=== PATIENT | male | born 1990 | race Caucasian/White ===

== ENCOUNTER 2023-08-04 12:49 | Emergency (ER) | payer BC, SELFPAY ==
[2023-08-04 13:07] VITALS: BP 142/115
[2023-08-04 13:25] LABS: % Basophils 0.7 % (0-2); % Eosinophils 3.7 % (0-6); % Immature Granulocytes 0.2 % (0-0.5); % Lymphocytes 37.4 % (20.5-51.1); Absolute Eosinophils 0.2 10^3/uL (0-0.7); Absolute Lymphocytes 2.1 10^3/uL (1.2-3.4); Absolute Monocytes 0.5 10^3/uL (0.1-0.6); Absolute Neutrophils 2.8 10^3/uL (1.4-6.5); Hematocrit 43.7 % (39.0-52.0); Hemoglobin 15.8 g/dL (13.0-18.0); Mean Corp Hgb Conc. 36.2 g/dL (33.0-37.0); Mean Corpuscular Hgb 30.7 pg (27.0-31.0); Mean Corpuscular Volume 84.9 fL (80.0-94.0); Mean Platelet Volume 9.7 fL (7.4-10.4); Nucleated Red Blood Cells % 0 % (-); Platelet Count 234 10^3/uL (130-400); Red Blood Cell Count 5.15 10^6/uL (4.70-6.10); Red Cell Dist. Width 12.1 % (11.5-14.5); White Blood Cell Count 5.6 10^3/uL (4.8-10.8)
[2023-08-04 13:41] LABS: ALT (SGPT) 21 U/L (0-50); AST (SGOT) 30 U/L (17-59); Albumin 4.9 g/dl (3.5-5.0); Alkaline Phosphatase 52 U/L (38-126); Blood Urea Nitrogen 12 mg/dl (9-20); COVID-19 Antigen Negative (Negative); Calcium 9.5 mg/dl (8.4-10.2); Carbon Dioxide 29 mmol/L (22-30); Chloride 101 mmol/L (98-107); Glucose 95 mg/dl (70-99); Lipase 104 U/L (23-300); Potassium 4.7 mmol/L (3.5-5.1); Sodium 135 mmol/L (135-145); Total Protein 7.5 g/dl (6.3-8.2); eGFR > 60.00
--- NOTE | 2023-08-04 15:15 | ED.GENMED ---
History of Present Illness
General
Chief Complaint: Headache
Time Seen by Provider: 08/04/23 15:14
Travel History
Have you had any contact with someone who has COVID-19?: No
Do you have any symptoms of coronavirus? Fever > 100 degrees, chills, cough, shortness of breath, sore throat, loss of taste or smell, muscle aches, or headache?: No
History of Present Illness
History of Present Illness:
HPI: Patient presents with headache. This is associated with photophobia and nausea. He has had symptoms ongoing for the last several days. He has had some milder headaches in the past but is never had any diagnosis such as migraine type of
headache. He has never had any neuroimaging.
EXAM:
GENERAL: Well appearing in no distress
HEENT: Moist oral mucosa
CARDIOVASCULAR: No murmurs, normal heart rate and rhythm, No chest wall tenderness
PULMONARY: No respiratory distress, breath sounds are clear and equal
ABDOMEN: Soft with no peritoneal signs, no tenderness
NEUROLOGIC: Excellent strength all extremities, no coordination deficits, normal finger-nose testing
PSYCHIATRIC: Appropriate mental status, normal insight and judgement
EXTREMITIES: Nontender, no edema, moves all extremities equally
SKIN: No rash, no lesions
ED COURSE:
3:35 PM: I initially evaluated patient
NUMBER AND COMPLEXITY OF PROBLEMS ADDRESSED AT THE ENCOUNTER
� Chronic conditions affecting care: Frequent headaches
� Acute Exacerbation and/or Progression of Chronic Illness: This is an acute/worsening problem
� Differential Diagnosis includes: Migraine type headache, tension headache, nonspecific headache, intracranial mass/bleeding unlikely
AMOUNT AND/OR COMPLEXITY OF DATA TO BE REVIEWED AND ANALYZED
� I performed an independent evaluation of and my interpretation is:
EKG:
CT: CT brain unremarkable
X-rays:
Laboratory Studies: CBC normal, chemistries including LFTs and lipase are normal, COVID and flu are negative
Other:
� Review of other/old records: I reviewed records�the patient had surgical removal of pilonidal cyst in 2022
� Clinical information was obtained by an independent historian: I spoke to the girlfriend at bedside
� Prescriptions/Medications Considered but not given:
� Further testing considered but not performed:
RISK OF COMPLICATIONS AND/OR MORBIDITY OR MORTALITY OF PATIENT MANAGEMENT
� Social determinants of health affecting care: Lives at home
� Discussion with other providers:
� Escalation of care including admission/observation vs risk of discharge considered: Given the associated photophobia and nausea, will try Reglan with Benadryl along with Toradol. He has a nonfocal neurologic examination
however has never had any headaches therefore CT imaging obtained which was unremarkable. On reassessment at 5 PM, the patient appears and feels somewhat improved after Reglan and Toradol were given. He is to follow-up with neurology as an
outpatient.
Phy Exam
Physical Exam
Physical Exam:
See HPI
Course
Orders/Labs/Results
Orders:
Orders
08/04/23 13:15
COVID-19 Antigen Urgent
Source: Nasal Swab
Complete Blood Count/With Diff Urgent
Comprehensive Metabolic Panel Urgent
Lipase Urgent
Influenza A+B Rapid Molecular Urgent
[facility] Source: Nasal Swab
Specimen Description:
08/04/23 15:41
CT Head W/o Iv Contrast Urgent
Comment:
Reason For Exam: new severe LUNDBERG
0.9% Sodium Chloride 1000 ml [Nss] 1,000 ml IV BOLUS
Diphenhydramine [Benadryl] 25 mg IV NOW STA
Ketorolac [Toradol] 15 mg IV NOW STA
Metoclopramide [Reglan] 10 mg IV NOW STA
08/04/23 13:15
08/04/23 13:15
Vital Signs
Initial and Last Documented VS:
Initial Vital Signs
Temp Pulse Resp BP Pulse Ox
98.1 F 70 18 142/115 100
08/04/23 13:07 08/04/23 13:07 08/04/23 13:07 08/04/23 13:07 08/04/23 13:07
Last Documented Vital Signs
Temp Pulse Resp BP Pulse Ox
98.1 F 64 18 129/77 100
08/04/23 13:07 08/04/23 15:51 08/04/23 15:51 08/04/23 15:51 08/04/23 15:51
*Critical Care Note
Total Time (30-74mins, 75-104mins- exclusive of procedures): Not Applicable
ED Attending Note
-
Portions of this chart may have been created with voice recognition software.� Occasional wrong word or��sound alike� substitutions may have occurred due to the inherent limitations of voice recognition software.
Discharge Plan
Departure
Patient Disposition: Home (Routine Discharge)
Date of Disposition: 08/04/23
Time of Disposition: 17:04
Patient with high blood pressure during this ER visit?: Yes
Discharge Problem:
Headache, Migraine
Prescriptions:
No Action
acetaminophen [acetaminophen] 325 mg tablet
650 mg PO Q4HPRN PRN (Reason: mild pain) Qty: 1 0RF
ibuprofen 200 mg tablet
400 - 600 mg PO Q6HPRN PRN (Reason: moderate pain) Qty: 1 0RF
oxycodone 5 mg tablet
5 mg PO Q4HPRN PRN (Reason: breakthrough/severe pain) Qty: 10 0RF
Referrals:
Jin Noble MD [Active] - Follow up in 2-3 days
UNKNOWN - PT DOES,NOT KNOW [Family Provider] -
Activity Restrictions/Additional Instructions:
CAT scan of the brain showed no acute abnormality, blood work was normal, COVID and flu test were negative. I have given you the contact information for a local neurologist to follow-up with.
Interventions
Interventions:
*Risk Screen - Suicide Last Done: 08/04/23 13:07
*General Assessment Last Done: 08/04/23 13:07
*Neglect/Abuse Screening Last Done: 08/04/23 13:07
ED- Fall Risk Assessment Last Done: 08/04/23 15:55
*ED COVID-19 Vaccine History Last Done: 08/04/23 13:07
ED- Neurological Assessment Last Done: 08/04/23 15:55
[2023-08-04 15:51] VITALS: BP 129/77
[2023-08-04] MEDS: TORADOL 15 MG IV (15:55)
[2023-08-04] MEDS: REGLAN 10 MG IV (15:55)
[2023-08-04] MEDS: NSS 1000 IV (15:55)
[2023-08-04] MEDS: BENADRYL 25 MG IV (15:56)
[2023-08-04 17:09] VITALS: BP 135/83
== END 2023-08-04 17:13 | disposition home or self-care (01) ==
LOC: EMR 12:49
PROVIDERS: Emergency Medicine; EMERGENCY PHYSICIAN Emergency Medicine
DX: G43.909 Migraine, unspecified, not intractable, without status migrainosus (principal); Z11.52 Encounter for screening for COVID-19; R03.0 Elevated blood-pressure reading, without diagnosis of hypertension
CPT/HCPCS: 99284; 96374; 96375 ×2; 70450; 80053; 83690; 85025; 87502; 87811

== ENCOUNTER 2024-02-26 06:37 | Emergency (ER) | payer BC, SELFPAY ==
[2024-02-26 06:37] VITALS: BP 116/69
--- NOTE | 2024-02-26 06:51 | ED.GENMED ---
History of Present Illness
General
Chief Complaint: Musculo-Skeletal Complaint
Source: patient
Exam Limitations: none
Time Seen by Provider: 02/26/24 06:42
Nursing documentation reviewed up to this point in time: agreed with
History of Present Illness
History of Present Illness:
33-year-old male presents to the emergency room for evaluation of left knee injury. Patient reports that he was at the gym last night and he let himself down from the chin up bar and tweaked his left knee. He says that he felt a pop at the time
but no significant pain. He was able to go for a run afterwards but that his knee did not feel quite right. He says that he woke up this morning and his knee felt 'tight' and so he came to the emergency room to be evaluated. He says that pain is
minimal. He has been able to weight-bear. No other injuries or complaints.
Review of Systems
Review of Systems
All Other Systems: ROS reviewed and negative except as documented in HPI and ROS
Musculoskeletal: Reports joint pain
Phy Exam
Physical Exam
Physical Exam:
General: Well appearing and non-toxic
HEENT: protecting airway
Neck: appears supple
CV: No evidence of cyanosis
Resp: No accessory muscle use
Abd: Non-distended
Extremities: Patient has small joint effusion of the left knee; no deformity, no pain with manipulation of patella, no joint line tenderness, no pretibial tenderness, no defect appreciated in the quadriceps or patellar tendon and patient is able to
actively range his knee through full range of motion with minimal discomfort; he has no laxity on varus or valgus stress, negative anterior and posterior drawer sign, negative Mojgan's; extremities warm well-perfused with good pulses and no edema
Neuro: Alert
Psych: Normal affect
Skin: Intact
Scores
Heart Failure Risk
Heart Failure Risk Score: Not Applicable
Heart Score for Chest Pain Patients
STEMI patient?: Not applicable
Withdrawal Assessment of Alcohol
Withdrawal Assessment Completed?: Not applicable
Course
Orders/Labs/Results
Orders:
Orders
02/26/24 06:40
Knee, Left 4 or More Views [CR Knee - Left 4 Or More View*] Urgent
Comment:
Reason For Exam: pain
Vital Signs
Initial and Last Documented VS:
Initial Vital Signs
Temp Pulse Resp BP Pulse Ox
36.6 C 55 16 116/69 100
02/26/24 06:37 02/26/24 06:37 02/26/24 06:37 02/26/24 06:37 02/26/24 06:37
Last Documented Vital Signs
Temp Pulse Resp BP Pulse Ox
36.6 C 55 16 116/69 100
02/26/24 06:37 02/26/24 06:37 02/26/24 06:37 02/26/24 06:37 02/26/24 06:37
MDM/Problems Addressed
Differential Diagnosis Includes:
Knee sprain, ligamentous tear, meniscus injury
MDM/Problems Addressed:
33-year-old male presents to the emergency room for minor knee injury as described above. Tweaked it when coming off the pull-up bar was stable to go for a ride and has been weightbearing since. [place] 'tight' this morning and not quite right and so
he came to the ER to be evaluated. He does have small joint effusion which likely accounts for this tight sensation. Physical exam as above�he really has no laxity to suggest that there is a ligamentous tear. He has a negative Mojgan sign which
goes against meniscal injury. Suspect mild knee sprain. Will check an x-ray to rule out any occult fractures. Can likely be discharged with Juan Carlos wrap, RICE, orthopedic referral as needed.
X-ray reviewed by shon shows joint effusion but no fracture or malalignment. Will plan to place an Juan Carlos wrap, discharged with RICE, NSAIDs as needed. Orthopedic referral if symptoms not improving. Patient comfortable with this plan. All
questions answered.
*Radiology
Radiology exam reviewed: preliminary read by ED provider
*Pulse Oximetry
Patient hypoxic: no
*Critical Care Note
Total Time (30-74mins, 75-104mins- exclusive of procedures): Not Applicable
Data Reviewed
Source: patient
ED Attending Note
-
Portions of this chart may have been created with voice recognition software.� Occasional wrong word or��sound alike� substitutions may have occurred due to the inherent limitations of voice recognition software.
Discharge Plan
Departure
Patient with high blood pressure during this ER visit?: No
Discharge Problem:
Left knee sprain
Instructions: Knee Sprain (DC)
Prescriptions:
No Action
No Current Medications
0
Referrals:
Obi Pacheco MD [Active] - As needed (If your symptoms persist despite conservative measures and rest as we described you should follow-up with the orthopedist)
Stand Alone Forms: Return to Work
Activity Restrictions/Additional Instructions:
Thank you for visiting the Emergency Department at [facility].
1. Please schedule a follow up appointment as directed. Call first thing tomorrow morning to make an appointment.
2. If indicated, please take your medications as instructed and indicated on discharge paperwork.
3. If any of your symptoms do not improve, or persist, or become more severe within 6-12 hours, please return to the emergency department for further care.
4. Please return to the emergency department if you develop a headache, neck pain/stiffness, fever greater than 100.4F, chest pain, shortness of breath, persistent nausea, vomiting, slurred speech, difficulty walking, numbness/tingling, weakness,
signs of infection or any other symptoms that are worrisome to you.
Please call [phone] if you have any questions.
Interventions
Interventions:
*Risk Screen - Suicide Last Done: 02/26/24 06:37
*General Assessment Last Done: 02/26/24 06:37
*Neglect/Abuse Screening Last Done: 02/26/24 06:37
ED- Fall Risk Assessment Last Done: 02/26/24 06:51
*ED COVID-19 Vaccine History Last Done: 02/26/24 06:51
ED-Musculoskeletal Assessment Last Done: 02/26/24 06:55
Discharge Date and Time
Print Language: MOLDOVAN
[2024-02-26 06:54] VITALS: BMI 26.2
[2024-02-26 07:25] VITALS: BP 136/58
== END 2024-02-26 07:26 | disposition home or self-care (01) ==
LOC: EMR 06:37
PROVIDERS: EMERGENCY PHYSICIAN Emergency Medicine
DX: S83.92XA Sprain of unspecified site of left knee, initial encounter (principal); X50.1XXA Overexertion from prolonged static or awkward postures, initial encounter
CPT/HCPCS: 99283; 73564

== ENCOUNTER 2025-01-28 14:14 | Emergency (ER) | payer BC, SELFPAY ==
[2025-01-28 14:18] VITALS: BP 128/71
[2025-01-28 14:42] VITALS: BMI 27.0
--- NOTE | 2025-01-28 15:13 | ED.GENMED ---
History of Present Illness
General
Chief Complaint: Musculo-Skeletal Complaint
Time Seen by Provider: 01/28/25 14:23
History of Present Illness
History of Present Illness:
34-year-old male presents the emergency department for evaluation of a right foot when a dresser fell on top of the foot. He is able to ambulate with discomfort.
Review of Systems
Review of Systems
Allergies reviewed?: Yes
All Other Systems: ROS reviewed and negative except as documented in HPI and ROS
Phy Exam
Physical Exam
Physical Exam:
GEN: Well appearing, NAD, WDWN
HEENT: Oral mucosa moist, no scleral icterus
Cardiac: Regular rate
Lung: No respiratory distress, no tachypnea
MSK: No gross deformity or injuries. Minor abrasion to the dorsum of the right foot, no bony deformity or ecchymosis, normal range of motion of the right ankle and right toes
Skin: Good color, no pallor or jaundice, no rashes
Neuro: AO x3, moves all extremities freely
Psych: Calm, cooperative
Course
Orders/Labs/Results
Orders:
Orders
01/28/25 14:20
Foot, Right 3 View [CR Foot - Right Min 3 Views] Urgent
Comment:
Reason For Exam: dropped dresser on right foot
Vital Signs
Initial and Last Documented VS:
Initial Vital Signs
Temp Pulse Resp BP Pulse Ox
98.0 F 59 16 128/71 98
01/28/25 14:18 01/28/25 14:18 01/28/25 14:18 01/28/25 14:18 01/28/25 14:18
Last Documented Vital Signs
Temp Pulse Resp BP Pulse Ox
98.0 F 59 16 128/71 98
01/28/25 14:18 01/28/25 14:18 01/28/25 14:18 01/28/25 14:18 01/28/25 15:14
MDM/Problems Addressed
MDM/Problems Addressed:
X-ray unremarkable, no evidence for bony pathology, discussed supportive care
*Pulse Oximetry
SaO2: 98
Oxygen Mode of Delivery: Room air
Patient hypoxic: no
*Critical Care Note
Total Time (30-74mins, 75-104mins- exclusive of procedures): Not Applicable
ED Attending Note
-
Portions of this chart may have been created with voice recognition software.� Occasional wrong word or��sound alike� substitutions may have occurred due to the inherent limitations of voice recognition software.
Discharge Plan
Departure
Patient Disposition: Home (Routine Discharge)
Date of Disposition: 01/28/25
Time of Disposition: 15:13
Patient with high blood pressure during this ER visit?: No
Discharge Problem:
Contusion of foot, right
Instructions: Contusion (DC)
Prescriptions:
No Action
No Current Medications
0
Referrals:
UNKNOWN - PT DOES,NOT KNOW [Family Provider]
Interventions
Interventions:
*Risk Screen - Suicide Last Done: 01/28/25 14:42
*General Assessment Last Done: 01/28/25 14:42
*Neglect/Abuse Screening Last Done: 01/28/25 14:42
*ED- Fall Risk Assessment Last Done: 01/28/25 14:42
*ED COVID-19 Vaccine History Last Done: 01/28/25 14:42
*Nursing Disposition Last Done: 01/28/25 15:15
ED-Musculoskeletal Assessment Last Done: 01/28/25 14:42
Discharge Date and Time
Discharge Date/Time: 01/28/25 15:15
Print Language: TAMAZIGHT
== END 2025-01-28 15:15 | disposition home or self-care (01) ==
LOC: EMR 14:14
PROVIDERS: EMERGENCY PHYSICIAN Emergency Medicine
DX: S90.31XA Contusion of right foot, initial encounter (principal); W22.8XXA Striking against or struck by other objects, initial encounter
CPT/HCPCS: 99283; 73630

== ENCOUNTER 2025-05-17 03:28 | Emergency (ER) | payer BC, SELFPAY ==
[2025-05-17 03:29] VITALS: BP 115/72
--- NOTE | 2025-05-17 04:14 | ED.GENMED ---
History of Present Illness
<La Gonzales PA-C - Last Filed: 05/17/25 06:59>
General
Chief Complaint: Eye Problems
Source: patient
Exam Limitations: none
Time Seen by Provider: 05/17/25 04:05
Nursing documentation reviewed up to this point in time: agreed with
History of Present Illness
History of Present Illness:
34-year-old male with a past medical history of Welders flash presents to the ER today with concerns of bilateral redness and irritation to his eyes starting yesterday. Patient reports that he went on a very long run outside and he normally wears
sunglasses but this time he did not. When he came in from the run, he noticed that his eyes were painful and irritated. He denies any foreign body in the eye. He tried going to bed but woke up with persistent pain. Patient reports that feels
like when he had Welders flash. Patient reports that he did well recently non-STEMI while there was 3 days ago and he did wear eye protection at the time. Patient also notes a mild headache. He denies any visual loss. He does have significant
decreased visual acuity at baseline and did not bring his glasses today. He does follow closely with infrastructure project manager. He is seeing them June 02. He denies any purulent drainage from his eye. He denies any fevers or chills.
Review of Systems
<La Gonzales PA-C - Last Filed: 05/17/25 06:59>
Review of Systems
All Other Systems: ROS reviewed and negative except as documented in HPI and ROS
Phy Exam
<La Gonzales PA-C - Last Filed: 05/17/25 06:59>
Physical Exam
Physical Exam:
General: Patient is well appearing and in no acute distress; non-toxic
Skin: Warm and dry, no rashes or lesions
Head: Normocephalic, atraumatic
Eyes: Mild scleral injection noted bilaterally. EOMs intact.
No purulent drainage. No fluorescein uptake. No intraocular foreign body. No cell and flare. Peripheral visual browning grossly intact.
Cardiac: Regular rate
Pulm: Normal respiratory effort
Neuro: CN II-XII intact, no focal neurologic deficits. Normal finger to nose, heel to berman
Psychiatric: Appropriate mood and affect.
Course
<La Gonzales PA-C - Last Filed: 05/17/25 06:59>
Orders/Labs/Results
Orders:
Orders
05/17/25 05:11
Erythromycin (Ilotycin) [Erythromycin 0.5% Ophthalmic Ointment] See Dose Instructions OPHTH NOW STA
Vital Signs
Initial and Last Documented VS:
Initial Vital Signs
Temp Pulse Resp BP Pulse Ox
97.9 F 68 16 115/72 100
05/17/25 03:29 05/17/25 03:29 05/17/25 03:29 05/17/25 03:29 05/17/25 03:29
Last Documented Vital Signs
Temp Pulse Resp BP Pulse Ox
97.9 F 68 16 115/72 100
05/17/25 03:29 05/17/25 03:29 05/17/25 03:29 05/17/25 03:29 05/17/25 04:14
<Dariel Rivera DO - Last Filed: 05/17/25 05:33>
Orders/Labs/Results
Orders:
Orders
05/17/25 05:11
Erythromycin (Ilotycin) [Erythromycin 0.5% Ophthalmic Ointment] See Dose Instructions OPHTH NOW STA
Vital Signs
Initial and Last Documented VS:
Initial Vital Signs
Temp Pulse Resp BP Pulse Ox
97.9 F 68 16 115/72 100
05/17/25 03:29 05/17/25 03:29 05/17/25 03:29 05/17/25 03:29 05/17/25 03:29
Last Documented Vital Signs
Temp Pulse Resp BP Pulse Ox
97.9 F 68 16 115/72 100
05/17/25 03:29 05/17/25 03:29 05/17/25 03:29 05/17/25 03:29 05/17/25 04:14
<La Gonzales PA-C - Last Filed: 05/17/25 06:59>
MDM/Problems Addressed
Differential Diagnosis Includes:
Differentials include UV keratitis, conjunctivitis, corneal abrasion, corneal ulcer, allergic conjunctivitis
MDM/Problems Addressed:
34-year-old male presents here today with concerns of eye pain and tearing. He feels this in both of his eyes and he felt this after a run. 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 Physical exam he is
well-appearing no acute distress. He has no signs of corneal abrasion or ulcer with worsening uptake. Lamp exam reassuring. Suspect mild UV keratitis versus environmental conjunctival irritation. Will initiate erythromycin for soothing side
effects as well as prevention of infection. Patient reports that his infrastructure project manager gets him in very quickly advised patient to call office later today. Patient expressed understanding. Discussed return return precautions. Patient stable for
discharge.
Chronic conditions affecting care:
N/A
<La Gonzales PA-C - Last Filed: 05/17/25 06:59>
*Pulse Oximetry
SaO2: 100
Oxygen Mode of Delivery: Room air
Patient hypoxic: no
*Critical Care Note
Total Time (30-74mins, 75-104mins- exclusive of procedures): Not Applicable
Data Reviewed
Review of Other/Old Records Reveals: Records (Reviewed ER patient from 01/28/2025 patient seen for contusion of the foot)
Source: patient and records
<La Gonzales PA-C - Last Filed: 05/17/25 06:59>
Patient Management
Escalation/DeEscalation of care consider admission/obs:
admit not indicated, patient stable for discharge
ED Attending Note
<La Gonzales PA-C - Last Filed: 05/17/25 06:59>
-
Portions of this chart may have been created with voice recognition software.� Occasional wrong word or��sound alike� substitutions may have occurred due to the inherent limitations of voice recognition software.
<Dariel Rivera DO - Last Filed: 05/17/25 05:33>
ED Attending Note
Patient seen and examined by attending physician: Yes
I performed the substantive portion of visit, reviewed & personally made and approve the management plan that is documented in note by myself or BRAYDON.: Yes
ED Attending Note:
I agree with La's note
Patient complaining of irritation to his eyes. Patient is a tank welder but states he has not actually done any welding for couple days. He does admit to spending a lot of time outside without sunglasses.
No significant uptake of fluorescein on funduscopic exam. Pupils equal round and reactive. Lids normal.
Discharge Plan
Departure
Patient Disposition: Home (Routine Discharge)
Date of Disposition: 05/17/25
Time of Disposition: 05:39
Patient with high blood pressure during this ER visit?: Yes
Condition: Good
Discharge Problem:
Corneal irritation of both eyes, UV keratitis
Instructions: Photokeratitis (arc eye)
Prescriptions:
New
erythromycin 5 mg/gram (0.5 %) ointment
1 applic ophthalmic (eye) QID Qty: 3.5 0RF
Referrals:
Ole Ji DO [Family Provider]
Activity Restrictions/Additional Instructions:
As discussed, you can use the erythromycin ointment 4 times daily in the eyes for 3 days.
*Please call your infrastructure project manager later today to schedule follow up appointment!! Please state that you were evaluated in the ER.
PLEASE RETURN TO THE ER SHOULD YOU DEVELOP VISUAL LOSS, INTRACTABLE HEADACHE, INTRACTABLE NAUSEA OR VOMITING, ANY OTHER SIGNS OR SYMPTOMS WORRISOME TO YOU.
Interventions
Interventions:
*General Assessment Last Done: 05/17/25 05:30
*Neglect/Abuse Screening Last Done: 05/17/25 05:30
*ED COVID-19 Vaccine History Last Done: 05/17/25 05:30
*ED Influenza Vaccine History Last Done: 05/17/25 05:30
[facility] Fall Risk Assessment Tool Last Done: 05/17/25 06:49
*Risk Screen - Suicide (C-SSRS) Last Done: 05/17/25 03:29
*Nursing Disposition Last Done: 05/17/25 06:49
Discharge Date and Time
Discharge Date/Time: 05/17/25 06:49
Print Language: ARABIC
[2025-05-17] MEDS: ERYTHROMYCIN 0.5% OPHTHALMIC OINTMENT 1 APPLIC OPHTH (05:25)
== END 2025-05-17 06:49 | disposition home or self-care (01) ==
LOC: EMR 03:28
PROVIDERS: EMERGENCY PHYSICIAN Emergency Medicine; FAMILY PHYSICIAN Family Medicine Adult Medicine
DX: H16.133 Photokeratitis, bilateral (principal)
CPT/HCPCS: 99283